=== PATIENT | female | born 1940 | race Caucasian/White ===

== ENCOUNTER 2017-10-11 18:27 | Emergency (ER) | payer MEDICARE ==
[~2017-10-11] VITALS: Ht 157.5 cm; Wt 71.7 kg
[~2017-10-11 18:27] MED LIST: ASCO500C14 PO; ATEN100T88 PO; CIPR-226 PO; FURO20TA4 PO; MULT-974 PO; PHEN200T27 PO; POTA-51 PO; TROS20TA2 PO
--- NOTE | 2017-10-11 20:14 | ED GU-Female ---
General Chief Complaint: Catheter/Drain/Tube Problems Stated Complaint: CATHETER NOT DRAINING Nursing Triage Note: pt reports her suprapubic catheter is not draining. they have tried changing it twice, with no improvement. she went to the ER in [facility] on Tuesday. she was scanned et the catheter is reportedly in the right place. she is having urethral output, incontinence. Nursing Sepsis Screen: No Definite Risk Source: patient Exam Limitations: no limitations History of Present Illness Date Seen by Provider: October 11, 2017 Time Seen by Provider: 20:05 Initial Comments Here with report of catheter problems. Apparently she has suprapubic catheter placed and it is not draining. She's had it replaced a few days ago and it still is not draining. She did have scanning which reportedly showed that the catheter was in the correct position. She is not sure why it's not draining. She has had scant output in the last 2 days to the catheter but has had good output via urethra in that timeframe. Timing/Duration: getting worse, other (4 days) Severity/Quality: mild Location: suprapubic Radiation: none Activities at Onset: none Associated Symptoms: other (notes moderate amount of urine from the bladder VA urethra. No urine output from catheter) Allergies and Home Medications Allergies Coded Allergies: Penicillins (Unverified Allergy, Unknown, 06/10/14) Sulfa (Sulfonamide Antibiotics) (Unverified Allergy, Unknown, 06/10/14) adhesive (Unverified Allergy, Unknown, 06/10/14) Home Medications Ascorbic Acid 500 Mg Capsule.sa, 500 MG PO DAILY, (Reported) Atenolol 100 Mg Tablet, 100 MG PO DAILY, (Reported) Ciprofloxacin HCl 250 Mg Tablet, 250 MG PO BID Prescribed by: LOTTIE MACE on 09/25/14 1141 Multivitamin 1 Each Tablet, 1 EACH PO DAILY, (Reported) Phenazopyridine Hcl 200 Mg Tablet, 1 EACH PO TID PRN Prescribed by: LOTTIE MACE on 09/25/14 1141 Trospium Chloride 20 Mg Tablet, 20 MG PO BID, (Reported) Patient Home Medication List Home Medication List Reviewed: Yes Review of Systems Constitutional: see HPI; No chills, No fever Respiratory: no symptoms reported Cardiovascular: no symptoms reported Genitourinary: see HPI; denies burning, denies flank pain : No Skin: no symptoms reported Past Qishtgx-Tmdlvh-Wynwkb Hx Past Med/Social Hx: Reviewed Nursing Past Med/Soc Hx Patient Social History Alcohol Use: Denies Use Recreational Drug Use: No Smoking Status: Unknown if Ever Smoked Recent Foreign Travel: No Contact w/Someone Who Travel: No Recent Infectious Disease Expo: No Immunizations Up To Date Date of Pneumonia Vaccine: Sep 25, 2012 Past Medical History Surgeries: Yes Urinary Diversion Genitourinary: Yes Bladder Infection, Kidney Stones Family Medical History Reviewed and Corrections made No Pertinent Family Hx Physical Exam Vital Signs Vital Signs - First Documented 10/11/17 18:45 Temp 99.1 B/P (MAP) 184/81 (115) Pulse Ox 100 O2 Delivery Room Air Capillary Refill : Less Than 3 Seconds General Appearance: WD/WN, no apparent distress Cardiovascular: regular rate, rhythm, no murmur Respiratory: lungs clear, normal breath sounds Gastrointestinal: non tender, soft, other (suprapubic catheter noted. No output in bag) Neurologic/Psychiatric: alert, oriented x 3 Skin: normal color, warm/dry Progress/Results/Core Measures Suspected Sepsis Recent Fever Within 48 Hours: No Infection Criteria Present: None New/Unexplained Altered Menta: No Sepsis Screen: No Definite Risk SIRS Temperature:99.1 Pulse: Respiratory Rate: Blood Pressure 184 /81 Mean: 115 Results/Orders My Orders Orders - ROMANA CHAVIRA MD Ua Culture If Indicated (10/11/17 20:46) Ciprofloxacin Tablet (Cipro Tablet) (10/11/17 21:00) Vital Signs/I&O 10/11/17 18:45 Temp 99.1 B/P (MAP) 184/81 (115) Pulse Ox 100 O2 Delivery Room Air Capillary Refill : Less Than 3 Seconds Blood Pressure Mean: 115 Progress Note : Progress Note Seen and evaluated. 20 Qatari catheter replaced with 22 Qatari three-way catheter. Good urine flow afterwards. Clots were noted in the previous catheter and some debris was draining from the bladder. UA obtained. Catheter flushed several times with normal saline. Tolerated catheter changed well without complications. We will initiate Cipro treatment given her history and multiple recent catheter changes with blood in the urine. She typically has Cipro for her urinary tract infections. She has appointment with Dr. Doss on October 18 and she will keep that appointment. They will change the catheter within the next week to a 20 Qatari single catheter versus the 3-way. Discharged home with return precautions. Patient verbalize understanding instructions and agreement with plan. Departure Impression Primary Impression: Suprapubic catheter dysfunction Qualified Codes: T83.010A - Breakdown (mechanical) of cystostomy catheter, initial encounter Additional Impression: Urinary tract infection Qualified Codes: N30.01 - Acute cystitis with hematuria Disposition: HOME, SELF-CARE Condition: Improved Departure-Patient Inst. Decision time for Depature: 20:47 Referrals: HAZEL CEDILLO MD (PCP/Family) Primary Care Physician Patient Instructions: How to Care for Your Cui Catheter, Female, Urinary Tract Infection, Adult (DC) Add. Discharge Instructions: All discharge instructions reviewed with patient and/or family. Voiced understanding. Take meds as directed. You should have your catheter replaced with a normal catheter in the next week. Follow-up with Dr. Doss as scheduled. Return for worse pain, weakness, breathing problems, fever, catheter dysfunction or other concerns as needed. Scripts Ciprofloxacin HCl (Cipro) 250 Mg Tablet 250 MG PO BID for 6 Days, #12 TAB Prov: ROMANA CHAVIRA MD 10/11/17 Copy Copies To 1: CARLINE DOSS MD, TIMOTHY D MD October 11, 2017 20:14
[2017-10-11] MEDS ORDERED: CIPR-226 PO (20:49)
[2017-10-11 20:55] LABS: BILIRUBIN,URINE NEGATIVE (NEGATIVE); COLOR,URINE RED; GLUCOSE, URINE (UA) NEGATIVE (NEGATIVE); KETONES,URINE NEGATIVE (NEGATIVE); LEUKOCYTE ESTERASE ,URINE 3+ (NEGATIVE); NITRITE,URINE POSITIVE (NEGATIVE); PH,URINE 8 (5-9); PROTEIN,URINE 3+ (NEGATIVE); UROBILINOGEN,URINE 1 MG/DL (NORMAL)
[2017-10-11 21:00] VITALS: BP 156/87
[2017-10-11] MEDS ORDERED: CIPROFLOXACIN 500 MG (CIPRO) TABLET PO SCH (21:00)
[2017-10-11 21:03] LABS: CLARITY,URINE CLOUDY; RBC,URINE TNTC /HPF; WBC,URINE 50-100 /HPF
[2017-10-11 21:04] LABS: BACTERIA,URINE LARGE /HPF
== END 2017-10-11 21:05 | disposition home or self-care (01) ==
LOC: EDUNIT# 18:27 → ER 18:29
DX: T83.89XA Other specified complication of genitourinary prosthetic devices, implants and grafts, initial encounter (principal); N39.0 Urinary tract infection, site not specified; Z87.442 Personal history of urinary calculi; Z88.0 Allergy status to penicillin; Z88.2 Allergy status to sulfonamides; Z88.8 Allergy status to other drugs, medicaments and biological substances
CPT/HCPCS: 81000; 87077; 87088; 87186

== ENCOUNTER → 2018-07-23 | Outpatient (CLI) | payer MEDICARE, MEDICAID ==
[2018-07-23 10:29] LABS: INR 4.4 (0.8-1.4); PROTHROMBIN TIME PATIENT 42.1 SEC (12.2-14.7)
== END ==
LOC: LABNPT 10:05
PROVIDERS: ATTEND Family Medicine
DX: Z51.81 Encounter for therapeutic drug level monitoring (principal); Z79.01 Long term (current) use of anticoagulants
CPT/HCPCS: 85610

== ENCOUNTER → 2018-08-22 | Outpatient (CLI) | payer MEDICARE, MEDICAID ==
--- NOTE | 2018-08-22 17:23 | Diagnostic Imaging Report ---
INDICATION: Bladder cancer. EXAM: KUB at 4:26 PM FINDINGS: There is a large amount of stool in the colon. There is calcific atherosclerosis of the aorta. There is an oval calcification in the bladder which appears to be a bladder calculus and possibly some other small bladder calculi. IMPRESSION: Suspected stones in the urinary bladder. Dictated by: Dictated on workstation # [id number]
== END ==
LOC: RAD 15:40
PROVIDERS: ATTEND Urology
DX: C67.9 Malignant neoplasm of bladder, unspecified (principal)
CPT/HCPCS: 74018

== ENCOUNTER 2018-09-28 20:35 | Emergency (ER) | payer MEDICARE, MEDICAID ==
[~2018-09-28] VITALS: Ht 162.6 cm; Wt 79.4 kg
[2018-09-28] MEDS ORDERED: IBUPROFEN TABLET 200 MG TAB PO ONE (20:45)
--- NOTE | 2018-09-28 20:49 | ED General ---
General Stated Complaint: FEVER Source of Information: EMS Exam Limitations: No Limitations History of Present Illness Date Seen by Provider: Sep 28, 2018 Time Seen by Provider: 20:46 Initial Comments To ER per EMS from medical [place] with reports by jail staff of a decline in cognitive function. EMS noted her to be febrile at 101. Patient was given Tylenol 1000 mg just prior to EMS arrival. She does have a chronic indwelling suprapubic catheter for neurogenic bladder from multiple sclerosis. Normally she is alert oriented and mentating well.. Family states that she has had upper respiratory symptoms of cough for the past few weeks. She is full code. Timing/Duration: 1-2 Days, Getting Worse Severity: Moderate Associated Systoms: Cough, Fever/Chills Allergies and Home Medications Allergies Coded Allergies: Penicillins (Unverified Allergy, Unknown, 06/10/14) Sulfa (Sulfonamide Antibiotics) (Unverified Allergy, Unknown, 06/10/14) adhesive (Unverified Allergy, Unknown, 06/10/14) Home Medications Ascorbic Acid 500 Mg Capsule.sa, 500 MG PO DAILY, (Reported) Atenolol 100 Mg Tablet, 100 MG PO DAILY, (Reported) Ciprofloxacin HCl 250 Mg Tablet, 250 MG PO BID Prescribed by: LOTTIE MACE on 09/25/14 1141 Ciprofloxacin HCl 250 Mg Tablet, 250 MG PO BID Prescribed by: ROMANA CHAVIRA on 10/11/172048 Multivitamin 1 Each Tablet, 1 EACH PO DAILY, (Reported) Phenazopyridine Hcl 200 Mg Tablet, 1 EACH PO TID PRN Prescribed by: LOTTIE MACE on 09/25/14 1141 Trospium Chloride 20 Mg Tablet, 20 MG PO BID, (Reported) Patient Home Medication List Home Medication List Reviewed: Yes Review of Systems Review of Systems Constitutional: see HPI, fever, other (difficult to obtain due to her altered mental status. When asked what year it is currently she states her birthday) Past Eijlcqd-Lutplx-Iskzas Hx Patient Social History 2nd Hand Smoke Exposure: No Recent Foreign Travel: No Contact w/Someone Who Travel: No Recent Hopitalizations: No Immunizations Up To Date Date of Pneumonia Vaccine: Sep 25, 2012 Seasonal Allergies Seasonal Allergies: No Past Medical History Surgeries: Yes Urinary Diversion Respiratory: No Cardiac: Yes (HYPERTROPHIC CARDIOMYOPATHY) Neurological: No Genitourinary: Yes Bladder Infection, Kidney Stones Gastrointestinal: No Musculoskeletal: Yes (MS- MUSCLE WEAKNESS) Endocrine: No Integumentary: No Blood Disorders: No Family Medical History No Pertinent Family Hx Physical Exam Vital Signs Vital Signs - First Documented 09/28/18 20:36 Temp 101.5 Pulse 87 Resp 19 B/P (MAP) 124/54 (77) Pulse Ox 94 O2 Delivery Room Air Capillary Refill : Height, Weight, BMI Height: 5'2.00" Weight: 158lbs. oz. 71.703154kk; BMI Method:Stated General Appearance: No Apparent Distress, WD/WN Eyes: Bilateral Eye Normal Inspection, Bilateral Eye PERRL, Bilateral Eye EOMI HEENT: PERRL/EOMI Neck: Normal Inspection, Supple Respiratory: No Accessory Muscle Use, No Respiratory Distress, Rhonci Cardiovascular: Regular Rate, Rhythm, Normal Peripheral Pulses Gastrointestinal: Normal Bowel Sounds, Non Tender, Soft, Other (there is an indwelling suprapubic Cui catheter draining brownish tea-colored urine.) Extremity: Normal Capillary Refill, Other (edema bilateral lower extremities 2+ .) Neurologic/Psychiatric: Alert, Oriented x3, No Motor/Sensory Deficits Skin: Normal Color, Warm/Dry Focused Exam Lactate Level 09/28/18 20:45: Lactic Acid Level 2.33*H 09/28/18 23:01: Time of Focused Exam: 23:18 Respiratory: Chest Non Tender, Lungs Clear, Normal Breath Sounds Cardiovascular: Regular Rate, Rhythm, Normal Peripheral Pulses Capillary Refill: Less Than 3 Seconds Skin: normal color, warm/dry Lactic Acid Level Laboratory Tests Test 09/28/18 20:45 09/28/18 23:01 Lactic Acid Level 2.33 MMOL/L (0.50-2.00) *H Within 3hrs of presentation: Admin fluids, Blood cultures prior to ABX's, Lactate level Procedures/Interventions Lumen: triple Position: internal jugular (R) Anesthesia: Lidocaine Volume Anesthetic (ccs): 5 Complications: none Post Position: sutured, good blood return, position confirmed w/ CXR Progress/Results/Core Measures Suspected Sepsis SIRS Temperature: Pulse: Respiratory Rate: Laboratory Tests 09/28/18 20:45: White Blood Count 21.0H Blood Pressure / Mean: 09/28/18 20:45: Lactic Acid Level 2.33*H 09/28/18 23:01: Laboratory Tests 09/28/18 20:45: Creatinine 1.81H, INR Comment 6.5*H, Platelet Count 109L, Total Bilirubin 1.0 Results/Orders Lab Results Laboratory Tests Test 09/28/18 20:45 09/28/18 21:20 09/28/18 23:01 Range/Units White Blood Count 21.0 H 4.3-11.0 10^3/uL Red Blood Count 3.83 L 4.35-5.85 10^6/uL Hemoglobin 10.8 L 11.5-16.0 G/DL Hematocrit 35 35-52 % Mean Corpuscular Volume 91 80-99 FL Mean Corpuscular Hemoglobin 28 25-34 PG Mean Corpuscular Hemoglobin Concent 31 L 32-36 G/DL Red Cell Distribution Width 15.4 H 10.0-14.5 % Platelet Count 109 L 130-400 10^3/uL Mean Platelet Volume 10.5 H 7.4-10.4 FL Neutrophils (%) (Auto) 94 H 42-75 % Lymphocytes (%) (Auto) 3 L 12-44 % Monocytes (%) (Auto) 4 0-12 % Eosinophils (%) (Auto) 0 0-10 % Basophils (%) (Auto) 0 0-10 % Neutrophils # (Auto) 19.7 H 1.8-7.8 X 10^3 Lymphocytes # (Auto) 0.5 L 1.0-4.0 X 10^3 Monocytes # (Auto) 0.8 0.0-1.0 X 10^3 Eosinophils # (Auto) 0.0 0.0-0.3 10^3/uL Basophils # (Auto) 0.0 0.0-0.1 10^3/uL Neutrophils % (Manual) 95 % Lymphocytes % (Manual) 1 % Monocytes % (Manual) 0 % Eosinophils % (Manual) 0 % Basophils % (Manual) 0 % Band Neutrophils 4 % Blood Morphology Comment NORMAL Prothrombin Time 60.2 *H 12.2-14.7 SEC INR Comment 6.5 *H 0.8-1.4 Sodium Level 141 135-145 MMOL/L Potassium Level 4.5 3.6-5.0 MMOL/L Chloride Level 107 98-107 MMOL/L Carbon Dioxide Level 22 21-32 MMOL/L Anion Gap 12 5-14 MMOL/L Blood Urea Nitrogen 38 H 7-18 MG/DL Creatinine 1.81 H 0.60-1.30 MG/DL Estimat Glomerular Filtration Rate 27 BUN/Creatinine Ratio 21 Glucose Level 171 H 70-105 MG/DL Lactic Acid Level 2.33 *H 0.50-2.00 MMOL/L Calcium Level 9.0 8.5-10.1 MG/DL Corrected Calcium 9.7 8.5-10.1 MG/DL Total Bilirubin 1.0 0.1-1.0 MG/DL Aspartate Amino Transf (AST/SGOT) 34 5-34 U/L Alanine Aminotransferase (ALT/SGPT) 9 0-55 U/L Alkaline Phosphatase 93 40-136 U/L B-Type Natriuretic Peptide 3767.8 H <100.0 PG/ML Total Protein 6.1 L 6.4-8.2 GM/DL Albumin 3.1 L 3.2-4.5 GM/DL Urine Color BROWN H Urine Clarity VERY CLOUDY H Urine pH 8 5-9 Urine Specific [place] 1.010 L 1.016-1.022 Urine Protein 4+ NEGATIVE Urine Glucose (UA) NEGATIVE NEGATIVE Urine Ketones 1+ H NEGATIVE Urine Nitrite NEGATIVE NEGATIVE Urine Bilirubin NEGATIVE NEGATIVE Urine Urobilinogen NORMAL NORMAL MG/DL Urine Leukocyte Esterase 3+ H NEGATIVE Urine RBC (Auto) 5+ H NEGATIVE Urine RBC 25-50 H /HPF Urine WBC TNTC H /HPF Urine Crystals NONE /LPF Urine Bacteria LARGE H /HPF Urine Casts NONE /LPF Urine Mucus NEGATIVE /LPF Urine Culture Indicated YES Micro Results Microbiology 09/28/18 Influenza Types A,B Antigen (ZITA) - Final, Complete My Orders Orders - [facility] DIRECT[facility] Cbc With Automated Diff (09/28/18 20:40) Comprehensive Metabolic Panel (09/28/18 20:40) Blood Culture (09/28/18 20:40) Lactic Acid Analyzer (09/28/18 20:40) Ua Culture If Indicated (09/28/18 20:40) Iv Heplock-Insert (Order) (09/28/18 20:40) Chest 1 View, Ap/Pa Only (09/28/18 20:40) Ibuprofen Tablet (Motrin Tablet) (09/28/18 20:45) Influenza A And B Antigens (09/28/18 20:49) Manual Differential (09/28/18 20:45) Protime With Inr (09/28/18 21:15) Ns Iv 1000 Ml (Sodium Chloride 0.9%) (09/28/18 21:30) BNP (09/28/18 21:16) Ceftriaxone For Iv Use (Rocephin For I (09/28/18 21:30) Ceftriaxone For Iv Use (Rocephin For I (09/28/18 21:20) Water (Sterile) For Injection (Sterile W (09/28/18 21:21) Urine Culture (09/28/18 21:20) Phytonadione Oral Solution (Mephyton Ora (09/28/18 22:15) Norepinephrine (Levophed) (09/28/18 22:30) Medications Given in ED Current Medications Medications Dose Ordered Sig/Varsha Route Start Time Stop Time Status Last Admin Dose Admin Ceftriaxone Sodium 1000 mg/ Sterile Water 10 ml @ 200 mls/hr ONCE ONCE IV 09/28/18 21:30 09/28/18 21:32 DC 09/28/18 21:25 200 MLS/HR Ibuprofen 600 mg ONCE ONCE PO 09/28/18 20:45 09/28/18 20:46 DC 09/28/18 20:57 600 MG Phytonadione 2.5 mg ONCE ONCE PO 09/28/18 22:15 09/28/18 22:16 DC 09/28/18 22:15 2.5 MG Vital Signs/I&O 09/28/18 09/28/18 20:36 20:57 Temp 101.5 101.5 Pulse 87 Resp 19 B/P (MAP) 124/54 (77) Pulse Ox 94 O2 Delivery Room Air Capillary Refill : Departure Communication (Admissions) 6965-blood pressure is 99/47, heart rate is 68, oxygen saturation 97% room air, respiratory rate is 17. She is alert but disoriented. She does have a urinary tract infection. She does have IV access in the right arm, left arm is not used due to history of mastectomy and lymphedema. Normal saline 1 L is infusing, Rocephin 1 g has been infused. Blood cultures and lactic acid obtained. Chest x- ray shows cardiomegaly with central vascular congestion but no nolan edema or obvious infiltrate. Awaiting radiologist's report. She does meet sepsis criteria. Given the borderline blood pressure discussed with the family the need to place central line. Signed consent for this before starting placement of the line her INR came back elevated at 6.5 so we will hold off on that temporarily.. With Her cardiomegaly, pulmonary vascular congestion and elevated BNP (albeit that maybe falsely elevated due to the renal failure) we would have a lower threshold for initiating pressor medications for her and limiting fluid bolus. I discussed with primary care Dr. Almeida, since we are on ICU diversion here she would like this patient transferred to a facility with ICU capabilities. She has an elevated INR without bleeding at this time we'll withhold her warfarin dose of 2.5 mg of vitamin K orally. Discussed all of this with family and they're all very pleasant, reasonable and agreeable to transfer to [place]. 2234- blood pressure is now 79/35. Levophed started at 8 mcg/kg/m through a peripheral IV in the right antecubital fossa.. 2300-discussed with the [facility] pipeliner Dr. Clark, would recommend going ahead and starting central line. I did start one in the right internal jugular 1 attempt with minimal bleeding 2316- blood pressure is currently 127/56, heart rate of 68 sinus. She is on the Levophed at 8 mcg/kg/min Syed tablet Daughter in law who has POA-->Whendaryl Parikh [phone] Impression Primary Impression: CHF (congestive heart failure) Qualified Codes: I50.9 - Heart failure, unspecified Additional Impressions: Supratherapeutic INR Urinary tract infection Qualified Codes: N39.0 - Urinary tract infection, site not specified; R31.9 - Hematuria, unspecified Severe sepsis Disposition: T-[facility] Condition: Stable Departure-Patient Inst. Referrals: HAZEL CEDILLO MD (PCP/Family) Primary Care Physician [facility] DIRECT[facility] Sep 28, 2018 20:48
[2018-09-28 21:03] LABS: BASOPHILS % (AUTO) 0 % (0-10); EOSINOPHILS % (AUTO) 0 % (0-10); HEMATOCRIT 35 % (35-52); HEMOGLOBIN 10.8 G/DL (11.5-16.0); LYMPHOCYTES # (AUTO) 0.5 X 10^3 (1.0-4.0); LYMPHOCYTES % (AUTO) 3 % (12-44); MEAN CORPUSCULAR HEMOGLOBIN 28 PG (25-34); MEAN CORPUSCULAR HGB CONC 31 G/DL (32-36); MEAN CORPUSCULAR VOLUME 91 FL (80-99); MEAN PLATELET VOLUME 10.5 FL (7.4-10.4); MONOCYTES # (AUTO) 0.8 X 10^3 (0.0-1.0); MONOCYTES % (AUTO) 4 % (0-12); NEUTROPHILS # (AUTO) 19.7 X 10^3 (1.8-7.8); NEUTROPHILS % (AUTO) 94 % (42-75); PLATELET COUNT 109 10^3/uL (130-400); RED CELL DISTRIBUTION WIDTH 15.4 % (10.0-14.5)
[2018-09-28] MEDS ORDERED: cefTRIAXone 1,000 MG IV (ROCEPHIN) VIAL ONE (21:20)
[2018-09-28] MEDS ORDERED: WATER (STERILE) FOR INJECTION 10 ML ONE (21:21)
[2018-09-28 21:23] LABS: ALBUMIN 3.1 GM/DL (3.2-4.5); BAND NEUTROPHILS 4 %; BASOPHILS % (MANUAL) 0 %; CREATININE SERUM 1.81 MG/DL (0.60-1.30); EOSINOPHILS % (MANUAL) 0 %; LYMPHOCYTES % (MANUAL) 1 %; MONOCYTES % (MANUAL) 0 %; NEUTROPHILS % (MANUAL) 95 %; POTASSIUM 4.5 MMOL/L (3.6-5.0); RBC MORPH NORMAL; TOTAL PROTEIN 6.1 GM/DL (6.4-8.2)
[2018-09-28 21:30] LABS: BILIRUBIN,URINE NEGATIVE (NEGATIVE); CLARITY,URINE VERY CLOUDY; GLUCOSE, URINE (UA) NEGATIVE (NEGATIVE); KETONES,URINE 1+ (NEGATIVE); LEUKOCYTE ESTERASE ,URINE 3+ (NEGATIVE); NITRITE,URINE NEGATIVE (NEGATIVE); PH,URINE 8 (5-9); PROTEIN,URINE 4+ (NEGATIVE); UROBILINOGEN,URINE NORMAL (NORMAL)
[2018-09-28] MEDS ORDERED: cefTRIAXone FOR IV USE 1,000 MG in WATER (STERILE) FOR INJECTION 10 ML IV ONE (21:30)
[2018-09-28] MEDS ORDERED: NS IV 1000 ML 1,000 ML IV SCH (21:30)
[2018-09-28 21:34] LABS: BACTERIA,URINE LARGE /HPF; RBC,URINE 25-50 /HPF; WBC,URINE TNTC /HPF
[2018-09-28 21:35] LABS: COLOR,URINE BROWN
[2018-09-28 21:58] LABS: PROTHROMBIN TIME PATIENT 60.2 SEC (12.2-14.7)
[2018-09-28 21:59] LABS: INR 6.5 (0.8-1.4)
[2018-09-28] MEDS ORDERED: VITAMIN K 1 MG/ML ORAL SOLN 1 ML SYRINGE PO ONE (22:15)
[2018-09-28] MEDS ORDERED: NOREPINEPHRINE 4 MG in NS (IVPB) 250 ML IV SCH (22:30)
--- NOTE | 2018-09-28 22:49 | Diagnostic Imaging Report ---
Examination: Single frontal view of the chest Indication: Fever. Comparison: None available. Findings: Marked patient rotation limits evaluation. No focal consolidation. No overt edema. Heart is top normal in size. Right transvenous ICD and leads are present. No lead discontinuity is demonstrated. No pneumothorax or large pleural effusion. No acute osseous abnormality. Surgical clips are demonstrated in the left axilla. Impression: No acute chest disease within the confines of limitations caused by marked patient rotation. Dictated by: Dictated on workstation # [id number]
--- NOTE | 2018-09-28 23:25 | NUR ---
PT REPORT CALLED TO LAUREN NOBLES @ [facility]. UPON ARRIVAL ROOM #[id number] (ICU)
--- NOTE | 2018-09-28 23:40 | NUR ---
[facility] AND [facility] CONTACTED FOR REQUEST EMS TRANSFER TO [facility].
[2018-09-29 00:23] VITALS: BP 97/53
--- NOTE | 2018-09-29 06:47 | Diagnostic Imaging Report ---
INDICATION: Followup central line placement. Comparison with 9:12 p.m. exam. FINDINGS: Right central line is present. Tip appears to be in the superior vena cava near the confluence of the innominate vein. ICD pacer is present on the right which does overlie the central line. Lungs are well-aerated and clear. IMPRESSION: Right central line present appearing to be within the superior vena cava. Dictated by: Dictated on workstation # [id number]
== END 2018-09-29 00:23 | disposition short-term general hospital (02) ==
LOC: EDUNIT# 20:35 → ER 20:36
DX: I50.9 Heart failure, unspecified (principal); N39.0 Urinary tract infection, site not specified; A41.9 Sepsis, unspecified organism; R65.20 Severe sepsis without septic shock; Z88.0 Allergy status to penicillin; Z88.2 Allergy status to sulfonamides; Z91.048 Other nonmedicinal substance allergy status; Z87.448 Personal history of other diseases of urinary system; Z98.890 Other specified postprocedural states; Z79.01 Long term (current) use of anticoagulants; Z87.442 Personal history of urinary calculi
CPT/HCPCS: 36415; 71045; 80053; 81000; 83605; 83880; 85007; 85027; 85610; 87040; 87077; 87088; 87186; 87804